=== PATIENT | male | born 1965 | race Caucasian/White ===

== ENCOUNTER 2019-08-01 00:29 | Day surgery (SDC) | payer OTHER, SELFPAY ==
[2019-07-22 14:32] VITALS: BMI 37.1
--- NOTE | 2019-08-01 07:35 | WPDHPUPDATE1 ---
History and Physical Update Update Date/Time: 08/01/19 07:35 History and Physical has been reviewed, including an updated exam of the patient. There are NO changes in the patient's condition. Risks, benefits, and alternatives have been discussed and questions answered. Patient agrees to proceed with procedure.
[2019-08-01] MEDS: CELECOXIB 200 MG CAPSULE PO (10:30)
--- NOTE | 2019-08-01 11:18 | WPDANESEPPF ---
Anes - Initial Pre Proc Eval Procedure: Operation Date: 08/01/19 10:30 Proposed Procedures p Left Knee Arthroscopy, Meniscectomy, Proceed As Indicated - Homero Sorenson MD Date/Time: 08/01/19 11:18 Surgeon: Homero Sorenson MD Pre Op Diagnosis: Left Medial Meniscus Tear Patient Data Age: 53 Gender: M Height: 5 ft 6 in Weight: 104.33 kg Allergies Allergy/AdvReac Type Severity Reaction Status Date / Time erythromycin base Allergy Mild UNKNOWN- Verified 07/22/19 14:32 STATES WAS CHILD Home Medications Medication Instructions Recorded Confirmed Type chlorhexidine gluconate 4 % 1 applic TOPICAL ONCE #237 ml 07/15/19 07/22/19 Rx topical liquid Patient hx anesthesia problems: none Family hx anesthesia problems: none PMFSH Past Medical History Medical History (Updated 07/10/19 @ 16:35 by RUSS Galan) Acute medial meniscus tear of left knee Degenerative joint disease of knee Left knee pain Surgical History Surgical History History of hernia repair Social History Social History Smoking status: Never smoker Alcohol intake: current Anes - Eval Final PreProcedure Day of Procedure 08/01/19 11:18 Patient weight: obese Heart: regular rate and rhythm Lungs: clear to auscultation Airway: Mallampati scale class II Neurological: alert and oriented Last oral intake: >/= 8 hours ASA classification: II Emergent: no Anesthetic plan: proceed Anesthesia type and monitoring: general LMA and standard monitoring Informed Consent: The patient's anesthetic plan and its attendant risks and benefits were discussed with the patient/family/POA. Questions were solicited and answers provided to the satisfaction of the patient/family/POA.
[2019-08-01] MEDS: LACTATED RINGERS 1,000 ML 30 ML IV CONT (11:24)
[2019-08-01] MEDS: ceFAZolin 2 GM/D5W 50 ML 2 GM/50 ML BAG IVPB (11:27)
[2019-08-01] MEDS: IBUPROFEN IV 800 MG/200 ML 800 MG/200 ML BAG 400 MG IVPB (11:45)
[2019-08-01 12:32] VITALS: BP 143/85; PULSE 95; RESP 16; TEMP 36.9; O2SAT 100
--- NOTE | 2019-08-01 12:35 | PM.OP ---
Procedure Note - Brief Procedure Note - Brief Date of procedure: 08/01/19 Pre-op diagnosis: Left Medial Meniscus Tear Procedure performed: L KNEE SCOPE WITH PARTIAL MEDIAL MENISCECTOMY AND ABRASION ARTHROPLASTY Anesthesia: GETA Surgeon: Homero Sorenson MD Estimated blood loss (mL): 5 Complications: No immediate complications Condition: stable Disposition: PACU
[2019-08-01 12:45] VITALS: BP 150/85; PULSE 96; RESP 16; O2SAT 98
[2019-08-01 12:58] VITALS: BP 150/85; PULSE 92; RESP 13; O2SAT 97
[2019-08-01 13:02] VITALS: BP 147/92; PULSE 88; RESP 18; O2SAT 98
[2019-08-01 13:20] VITALS: BP 147/93; PULSE 89; RESP 18; O2SAT 98
[2019-08-01 13:45] VITALS: BP 148/84; PULSE 92; RESP 18; O2SAT 98
--- NOTE | 2019-08-01 17:40 | OP_ITS ---
DATE OF PROCEDURE: 08/01/2019 PREOPERATIVE DIAGNOSES: 1. Left knee medial meniscus tear. 2. Left knee DJD. POSTOPERATIVE DIAGNOSES: 1. Left knee medial meniscus tear. 2. Left knee DJD. PROCEDURE: Left knee arthroscopy with partial medial meniscectomy and abrasion arthroplasty. ANESTHESIA: General. COMPLICATIONS: None. INDICATIONS: This is a 53-year-old male who came in with right knee pain. He had some medial-sided wearing and he did have medial-sided tenderness and a positive Monisha sign. After MRI was performed, it did show some mild arthritis, but also showed a large tear of the medial meniscus and it was thought that his pain was mostly coming from the meniscus, so he is indicated for left knee arthroscopy. DESCRIPTION OF PROCEDURE: The patient was taken to the operating room in stable condition and placed in supine position. General anesthesia was induced and the left lower extremity was prepped and draped sterilely from the toes to the thigh. Superomedial portals used for an outflow cannula. Inferolateral port was used for the camera. The camera was introduced. There was no significant chondromalacia to the patellofemoral joint. The medial compartment was entered. There was a large tear and a complex tear of the posterior horn of the medial meniscus. There was an area of complete cartilage loss on the medial plateau, but that area was approximately 1 cm wide by 3 cm long. A medial portal was established. A shaver and a biter were introduced at separate times and the medial meniscus tear was shaved down to a smooth base. Next, using a [place] pick, an abrasion arthroplasty was performed over the tibia and one small area on the femur were there appeared to be some denuded cartilage and a small area of exposed bone. There was good bleeding bone from all the abrasion arthroplasty sites. Next, the intercondylar notch was entered. There was no tear to the ACL. The lateral compartment was entered. There was no tear to the lateral meniscus. There was no significant chondromalacia to the lateral meniscus as well. Next, patellofemoral joint was entered once again and was found the patella was tracking normally without any tilt. The instruments were removed after thorough irrigation of knee joint. Wounds were approximated with 4-0 nylon suture. Sterile dressing was applied. The patient was extubated. D I MT: Annette
== END 2019-08-01 14:05 | disposition home or self-care (01) ==
PROVIDERS: PCP Family Medicine; Visit Provider Orthopaedic Surgery
PROC: (CPT 29870; principal; 2019-08-01 10:30)
DX: M23.322 Other meniscus derangements, posterior horn of medial meniscus, left knee (principal); M17.12 Unilateral primary osteoarthritis, left knee; E66.9 Obesity, unspecified; Z68.37 Body mass index [BMI] 37.0-37.9, adult
CPT/HCPCS: 29881; 29879; A9270; J0690; J1100; J1741; J2250; J2405; J2704; J3010; J7120

== ENCOUNTER 2022-06-23 12:40 | Outpatient (CLI) | payer OTHER, SELFPAY ==
[2022-06-23 13:09] LABS: Basophils Absolute Auto 0.1 K/mm3 (0.0-0.1); Basophils Percent Auto 0.9 % (0.2-1.2); Eosinophils Absolute Auto 0.4 K/mm3 (0-0.3); Eosinophils Percent Auto 3.9 % (0-4.4); Hematocrit 45.4 % (42.0-52.0); Hemoglobin 14.6 g/dL (14.0-18.0); Immature Granulocyte Absolute 0.04 K/mm3 (0.00-0.031); Immature Granulocyte Percent A 0.4 % (0-0.5); Lymphocytes Absolute Auto 2.61 K/mm3 (0.9-3.2); Lymphocytes Percent Auto 24.7 % (18.3-44.2); Mean Corpuscular HGB Conc 32.2 g/dl (32-36); Mean Corpuscular Hemoglobin 28.2 pg (26-34); Mean Corpuscular Volume 87.6 fl (80-100); Mean Platelet Volume 9.7 fl (7.4-10.4); Monocytes Absolute Auto 0.8 K/mm3 (0.1-0.6); Monocytes Percent Auto 7.5 % (2.6-8.5); Neutrophils Absolute Auto 6.6 K/mm3 (1.3-6.7); Neutrophils Percent Auto 62.6 % (45.5-73.1); Platelet Count Result 226 k/mm3 (150-375); Red Blood Count 5.18 M/mm3 (4.6-6.20); Red Cell Distribution Width 13.2 % (11.5-14.5); White Blood Count 10.6 K/mm3 (4.5-10.0)
--- NOTE | 2022-06-23 13:10 | ECG_ITS ---
Measurements Intervals [place] Rate: 85 P: 43 [place]: 178 QRS: 5 QRSD: 86 T: -1 QT: 371 QTc: 441 Interpretive Statements SINUS RHYTHM INCOMPLETE RIGHT BUNDLE BRANCH BLOCK LEFT VENTRICULAR HYPERTROPHY BORDERLINE T WAVE ABNORMALITY- INFERIOR LEADS BORDERLINE ECG NO PREVIOUS ECG AVAILABLE FOR COMPARISON Electronically Signed On 06-23-2022 13:24:38 POLICE SERVICE TECHNICIAN by Cristofer Smith D.O.
[2022-06-23 13:26] LABS: Anion Gap 5 mmol/L (8-16); Blood Urea Nitrogen 15 mg/dL (9-20); Calcium 8.8 mg/dL (8.4-10.2); Carbon Dioxide 27 mmol/L (22-30); Chloride 102 mmol/L (98-107); Estimated Glomerular Filt Rate > 60; Glucose 106 mg/dL (65-110); Potassium 4.6 mmol/L (3.4-5.0); Sodium 134 mmol/L (137-145)
[2022-06-23 13:40] LABS: Appearance Urine Clear (Clear); Bilirubin Urine Negative (Negative); Blood Urine Negative (Negative); Color Urine Yellow (Yellow); Glucose Urine UA Negative (Negative); Ketones Urine Negative (Negative); Leukocyte Esterase Ur Negative LEU/UL (Negative); Nitrate Urine Negative (Negative); Protein Urine Negative (Negative); Specific Grav Ur 1.025 (1.001-1.035); Urobilinogen Urine 0.2 mg/dL (<2.0); pH Urine 5.5 (5.0-9.0)
[2022-06-23 14:23] LABS: Add Urine Microscopic? NO
== END 2022-06-23 12:41 | disposition home or self-care (01) ==
PROVIDERS: Visit Provider Orthopaedic Surgery
DX: M17.12 Unilateral primary osteoarthritis, left knee (principal); Z01.818 Encounter for other preprocedural examination; I45.10 Unspecified right bundle-branch block
CPT/HCPCS: 36415; 80048; 81003; 85025; 93005

== ENCOUNTER 2022-08-09 07:49 | Outpatient (CLI) | payer OTHER, SELFPAY ==
[2022-08-09 09:09] LABS: White Blood Count 10.8 K/mm3 (4.5-10.0)
[2022-08-09 09:18] LABS: Partial Thromboplastin Time 24.1 SECONDS (22.3-36.8); Prothrombin Time 12.3 Seconds (11.1-14.7)
[2022-08-09 09:24] LABS: Urine Cotinine NEGATIVE
== END 2022-08-09 07:50 | disposition home or self-care (01) ==
PROVIDERS: Visit Provider Orthopaedic Surgery
DX: M17.12 Unilateral primary osteoarthritis, left knee (principal); Z01.818 Encounter for other preprocedural examination
CPT/HCPCS: 80307; 82040; 83036; 85048; 85610; 85730; 87081

== ENCOUNTER 2022-08-23 00:20 | Day surgery (SDC) | payer OTHER, SELFPAY ==
--- NOTE | 2022-08-09 07:54 | PC.NURSE ---
PRE-OP INSTRUCTIONS, PLEASE READ CAREFULLY Report to the Outpatient Waiting Room, entrance under the green pavilion located off [facility], at time _1000_ on date _08/23/22_. Planned Procedure Time: _1200_. PACK A SMALL OVERNIGHT BAG AND LEAVE IN THE CAR ALONG WITH YOUR WALKER Time changes happen often and if your time is changed the preop area will call you the afternoon before. - You and your visitor will be asked to self-screen and do not enter if you have any COVID symptoms. - Only one visitor is requested with a max of two and NO children visitors are allowed at this time. - The patient visitor may be requested to leave or wait in car when not with patient due to distancing restrictions. - A mask is optional within the hospital at this time. -VISITING HOURS 8AM-8PM Patients may have clear liquids (water, carbonated beverages, clear teas, apple juice) until 3 hours prior to surgery (0900 AM) with a maximum of 20 ounces. - No food from midnight until time of surgery Take the following medications with a SIP of water the morning of surgery: _NONE_ DO NOT STOP ANY OF YOUR OTHER PRESCRIPTION MEDICATIONS PRIOR TO SURGERY ?EXCEPT THE FOLLOWING Medications to discontinue _ALEVE PER DR. ROB'S INSTRUCTIONS_ Date to take last dose Please no deodorant, or body powder the day of surgery. No jewelry (including any body piercings) or valuables the day of surgery, leave them at home. Please take a shower or bath the night before, or the morning of, surgery with an antibacterial soap. Wear comfortable, loose fitting clothing. - Jewelry must be removed prior to entering the operating room. Rings and piercings that are not removed may be cut off. - The hospital will not accept responsibility for valuables. - Please leave all valuables, including medications, at home the day of surgery. If you are going home after surgery, a licensed package delivery driver must drive you home. - NO public transportation without another adult if you receive anesthesia. - We recommend that an adult stay with you for 24 hours following discharge. - We also recommend that you do not drive, make important decision, drink alcoholic beverages, or take any drugs that were not prescribed by your health care provider for at least 24 hours after your discharge time. Follow any additional instructions given to you from your surgeon. TOTAL JOINT CLASS 08/09/22 @ 10AM, [facility] ENTR[facility]2 - LOWER LEVEL If you or anyone in your household have experienced Covid symptoms in the past week, please notify your surgeon or the nurse liaison at the phone number below for possible testing. Instructions given to _PATIENT_and asked if any additional questions and then verbalized understanding. Patient advised to call surgeon office or pre surgery nurse liaison [phone] if any additional questions.
[2022-08-09 08:15] VITALS: BP 152/82; PULSE 90; RESP 20; TEMP 37.1; O2SAT 98; BMI 39.7
[2022-08-23] VITALS (19 sets, daily range): BP systolic 111–156; BP diastolic 73–109; PULSE 85–108; RESP 12–18; TEMP 36.3–37.1; O2SAT 94–100; BMI 39.4
--- NOTE | ~2022-08-23 | XR_ITS ---
EXAMINATION: [id number] DATE: 08/23/2022 12:49 INDICATION: Postoperative evaluation following left total knee arthroplasty. TECHNIQUE: Anteroposterior and lateral views of the left knee were obtained. COMPARISON: None. FINDINGS: Left total knee arthroplasty without patellar resurfacing appears well seated and in near anatomic al ignment. No fractures identified. Expected postoperative subcutaneous and intra-articular gas. Midli ne skin dilia anterior to the knee. Small enthesophyte at the anterior tibial tuberosity. IMPRESSION: 1. Left total knee arthroplasty without patellar resurfacing, negative for postoperative purposes. Reviewed, dictated and finalized at location B. IMPRESSION: 1. Left total knee arthroplasty without patellar resurfacing, negative for post operative purposes.
--- NOTE | 2022-08-23 07:15 | WPDHPUPDATE1 ---
History and Physical Update Update Date/Time: 08/23/22 07:15 History and Physical has been reviewed, including an updated exam of the patient. There are NO changes in the patient's condition. Risks, benefits, and alternatives have been discussed and questions answered. Patient agrees to proceed with procedure.
[2022-08-23] MEDS: ACETAMINOPHEN 500 MG TABLET 1000 MG PO (09:16)
[2022-08-23] MEDS: LACTATED RINGERS 1,000 ML 30 ML IV CONT ×2 (09:16→12:38)
[2022-08-23] MEDS: TRANEXAMIC ACID 1,000MG/ISO100 1,000 MG/100 ML BAG 200 MG IVPB (09:17)
--- NOTE | 2022-08-23 09:27 | P.PNAN_ITS ---
Anes - Initial Pre Proc Eval Procedure: Operation Date: 08/23/22 10:30 Proposed Procedures p Left Total Knee Arthroplasty - Homero Sorenson MD Date/Time: 08/23/22 09:27 Surgeon: Homero Sorenson MD Pre Op Diagnosis: left knee djd Patient Data Age: 56 Gender: M Height: 1.65 m Weight: 107.4 kg Last Vital Signs Temp 36.6 C 08/23/22 08:50 Pulse 85 08/23/22 08:50 Resp 16 08/23/22 08:50 BP 134/82 08/23/22 08:50 Pulse Ox 98 08/23/22 08:50 O2 Del Method Room Air 08/23/22 08:50 Allergies Allergy/AdvReac Type Severity Reaction Status Date / Time erythromycin base Allergy Mild UNKNOWN- Verified 08/10/22 13:31 STATES WAS CHILD Home Medications Medication Instructions Recorded Confirmed Type lisinopril 20 mg tablet 20 mg HS 08/09/22 08/23/22 History naproxen sodium 220 mg tablet 440 mg PO BID PRN Pain 08/09/22 08/23/22 History (Aleve) chlorhexidine gluconate 4 % 1 applic topical ONCE #237 mL 08/14/22 08/23/22 Rx topical liquid (Hibiclens) Patient hx anesthesia problems: none Family hx anesthesia problems: none Results Review: All pre-operative results and documents have been reviewed as part of the pre- operative evaluation. [facility] Past Medical History Medical History Acute medial meniscus tear of left knee Degenerative joint disease of knee HTN (hypertension) Left knee DJD Left knee pain Surgical History Surgical History (Updated 08/23/22 @ 09:27 by Cameron Lake MD) H/O arthroscopic knee surgery History of hernia repair Family History Family History Unknown Diabetes mellitus Hypertension Social History Social History Smoking status: Never smoker Second hand tobacco smoke exposure: No Additional smoking assessment comments: PT DENIES ALL FORMS OF TOBACCO USE Alcohol intake: current Alcohol use details: 8-10 BEERS/WEEK Substance use: never Substance use type: does not use Living arrangements: with family Spiritual care concerns: No Anes - Eval Final PreProcedure Day of Procedure 08/23/22 09:27 Patient weight: morbidly obese Heart: regular rate and rhythm Lungs: clear to auscultation Airway: Mallampati scale class II Neurological: alert and oriented Last oral intake: >/= 8 hours ASA classification: III Emergent: no Anesthetic plan: proceed Anesthesia type and monitoring: general LMA and standard monitoring Results Review: All pre-operative results and documents have been reviewed as part of the pre- operative evaluation. Informed Consent: The patient's anesthetic plan and its attendant risks and benefits were discussed with the patient/family/POA. Questions were solicited and answers provided to the satisfaction of the patient/family/POA.
--- NOTE | 2022-08-23 09:59 | WPDANESPNB ---
Anes - Peripheral Nerve Block Date/Time: 08/23/22 09:59 I have discussed with the patient/family/POA the placement of a peripheral nerve block for post-operative pain management, including associated risks, benefits, complications, and side effects. Alternative methods of post-operative analgesia were detailed. Questions were solicited and answers provided to the satisfaction of the patient/family/POA. Time-Out: A pre-procedural Time-Out was completed immediately before starting the procedure and confirmed: Patient Identification, Site, Procedure, Patient Position and the Availability of Requisite Equipment. Clinical Indications: Acute post-operative pain management requested by the operative surgeon. Nerve Block Insertion Note Anes-nerve block: femoral left Patient position: supine Skin prep: chlorhexidine Needle: 22 gauge, stimulating, insulated echogenic needle. Needle length: 50 mm Technique: nerve stimulation lost at (mA) (0.45) Injectate: bupivacaine 0.5% with epi 5 mcg/ml (20cc no epi) Complications: none Procedure start time:: 954 Procedure end time:: 999
[2022-08-23] MEDS: ceFAZolin 2 GM/D5W 50 ML 2 GM/50 ML BAG IVPB ×2 (10:21→17:47)
[2022-08-23] MEDS: TRANEXAMIC ACID 1,000 MG/10 ML AMPUL 1000 MG IV PUSH (11:46)
--- NOTE | 2022-08-23 12:37 | W.PM.PROC2 ---
Procedure Note - Detailed Date of Procedure 08/23/22 Pre-op Diagnosis left knee djd Post-op Diagnosis Same Procedure Performed LEFT TKA Surgeon Homero Sorenson MD Anesthesia General Description of Procedure THE LEFT KNEE WAS PREPPED AND DRAPED IN THE STERILE FASHION.?A MIDLINE SKIN INCISION WAS MADE.? A MEDIAL PARAPATELLAR ARTHROTOMY WAS MADE.? THE PATELLA WAS EVERTED.? THERE WAS TRICOMPARTMENT DJD. AN INTRAMEDULLARY JAVI WAS PLACED IN THE FEMUR.? A DISTAL FEMORAL CUT WAS MADE IN 5 DEGREES OF VALGUS REMOVING APPROXIMATELY 11 MM OF BONE FROM THE DISTAL FEMUR. THE FEMUR WAS SIZED TO 62.5.? A 62.5 FEMORAL CUTTING BLOCK WAS PLACED IN 3 DEGREES OF EXTERNAL ROTATION AND IN ALIGNMENT WITH CRISTIAN'S LINE AND THE TRANSEPICONDYLAR AXIS. ANTERIOR POSTERIOR AND CHAMFER CUTS WERE MADE.? THE CUTS WERE EXCELLENT.? NEXT AN INTRAMEDULLARY CUTTING GUIDE WAS PLACED IN THE TIBIA.? A TRANS TIBIAL CUT WAS MADE ALONG THE LONG AXIS OF THE TIBIA.? APPROXIMATELY 10 MM OF BONE WAS REMOVED FROM THE HIGH SIDE OF THE TIBIA. THE TIBIA WAS THEN PLANED TO A SMOOTH SURFACE.? POSTERIOR FEMORAL OSTEOPHYTES WERE REMOVED FROM THE FEMORAL CONDYLES.? A 71 TIBIAL TRIAL WAS PLACED IN ALIGNMENT WITH THE 1/3 MEDIAL ASPECT OF THE TIBIAL TUBERCLE.? THEN A 62.5 FEMORAL TRIAL COMPONENT WAS PLACED.? BOTH HAD EXCELLENT FITS.? EVENTUALLY A 10 CR POLYETHYLENE TRIAL? COMPONENT WAS PLACED.? THE KNEE WAS TAKEN THROUGH A RANGE OF MOTION.? THE KNEE CAME OUT TO FULL EXTENSION.? THERE WAS NO ABNORMAL TILT TO THE PATELLA.? THERE WAS GOOD A/P AND VARUS/VALGUS STABILITY.? THERE WAS NO EXCESSIVE ROLL BACK WITH FLEXION.? THE TRIAL COMPONENTS WERE REMOVED. THEN A 62.5 FEMORAL COMPONENT AND 71 TIBIAL COMPONENT WITH A 10 CR POLYETHYLENE COMPONENT WERE CEMENTED INTO PLACE.? ONCE THE CEMENT WAS HARD THE KNEE WAS TAKEN THROUGH A ROM AGAIN AND FOUND TO BE STABLE WITH NO PATELLA TILT NO EXCESSIVE ROLL BACK WITH FLEXION AND GOOD STABILITY WITH COMPLETE AND FULL EXTENSION.? THE KNEE WAS IRRIGATED WITH STERILE BETADINE AND WATER FOR ABOUT 3 MINUTES.? THE BLEEDERS WERE CAUTERIZED.? THE ARTHROTOMY WAS REPAIRED WITH NUMBER 1 VICRYL.? THE SUB CUTANEOUS LAYER WITH 2-0 VICRYL AND THE SKIN WITH ADAM.? THE WOUND WAS WASHED AND A STERILE DRESSING WAS APPLIED.? PATIENT WAS EXTUBATED. Estimated Blood Loss 100 Drains No Complications No immediate complications Disposition PACU
[2022-08-23] MEDS: fentaNYL CITRATE INJ (*CRX) 100 MCG/2 ML VIAL 25 MCG IV PUSH ×8 (12:45→13:19)
--- NOTE | 2022-08-23 13:24 | SUR.PHASEI ---
Call to Dr. Lake for pain medication. Patient rating pain a 10 on numeric scale to left knee after 200MCG of fentanyl being administered. Per Dr. Lake place orders for 0.5MG dilaudid IVP max dosing 2MG.
[2022-08-23] MEDS: HYDROmorphone HCL INJ (*CRX) 1 MG/ML SYR 0.5 MG IV PUSH ×3 (13:29→13:52)
[2022-08-23] MEDS: LABETALOL HCL INJ 100 MG/20 ML VIAL 10 MG IV PUSH ×2 (14:02→14:16)
--- NOTE | 2022-08-23 15:10 | PC.NURSE ---
This patient, Alfredo Fontaine, was admitted to [address] [facility] Surg Room 322-01. Patient/family oriented to hospital policies and general routines including ID bracelet, bed and alarms, visiting hours, pain management, procedures, bathroom and other care routines, personal items, smoking policy, room service/diet, and visiting hours. Information on how to activate the Rapid Response Team has been discussed. Patient/Family are encouraged to report perceived risks to care and to ask questions if they do not understand what they are told or what they should do.
[2022-08-23] MEDS: oxyCODONE/ACETAMINOPHEN (*CRX) 5-325 MG TABLET 1 TABLET PO ×2 (15:59→21:04)
[2022-08-23] MEDS: KETOROLAC 15 MG/ML VIAL (*BKC) IV PUSH (18:47)
[2022-08-23] MEDS: lisinopriL 20 MG TABLET BY MOUTH (21:02)
[2022-08-23] MEDS: ASPIRIN 325 MG ENTERIC TABLET PO (21:02)
[2022-08-23] MEDS: FAMOTIDINE 20 MG TABLET PO (21:02)
[2022-08-24] VITALS: BP 116/70; PULSE 87; RESP 18; TEMP 36.2; O2SAT 98
[2022-08-24] MEDS: KETOROLAC 15 MG/ML VIAL (*BKC) IV PUSH ×3 (00:30→11:38)
[2022-08-24] MEDS: ceFAZolin 2 GM/D5W 50 ML 2 GM/50 ML BAG IVPB ×2 (01:43→11:39)
[2022-08-24 04:00] VITALS: BP 97/59; PULSE 87; RESP 18; TEMP 36.2; O2SAT 99
[2022-08-24 07:25] LABS: Basophils Percent Auto 0.3 % (0.2-1.2); Eosinophils Percent Auto 0.2 % (0-4.4); Hematocrit 38.4 % (42.0-52.0); Hemoglobin 12.1 g/dL (14.0-18.0); Immature Granulocyte Absolute 0.09 K/mm3 (0.00-0.031); Immature Granulocyte Percent A 0.6 % (0-0.5); Lymphocytes Absolute Auto 2.51 K/mm3 (0.9-3.2); Lymphocytes Percent Auto 17.2 % (18.3-44.2); Mean Corpuscular HGB Conc 31.5 g/dl (32-36); Mean Corpuscular Hemoglobin 28.2 pg (26-34); Mean Corpuscular Volume 89.5 fl (80-100); Monocytes Absolute Auto 1.3 K/mm3 (0.1-0.6); Monocytes Percent Auto 8.7 % (2.6-8.5); Neutrophils Absolute Auto 10.6 K/mm3 (1.3-6.7); Platelet Count Result 260 k/mm3 (150-375); Red Blood Count 4.29 M/mm3 (4.6-6.20); Red Cell Distribution Width 13.6 % (11.5-14.5); White Blood Count 14.6 K/mm3 (4.5-10.0)
[2022-08-24 07:47] LABS: Anion Gap 8 mmol/L (8-16); Blood Urea Nitrogen 18 mg/dL (9-20); Calcium 8.5 mg/dL (8.4-10.2); Carbon Dioxide 23 mmol/L (22-30); Chloride 103 mmol/L (98-107); Estimated CRCL calculation 91 ml/min; Estimated Glomerular Filt Rate > 60; Glucose 134 mg/dL (65-110); Sodium 134 mmol/L (137-145)
[2022-08-24 07:49] VITALS: BP 108/75; PULSE 91; RESP 16; TEMP 36.5; O2SAT 97
[2022-08-24 08:00] VITALS: PULSE 91; RESP 16; O2SAT 97
[2022-08-24] MEDS: ASPIRIN 325 MG ENTERIC TABLET PO (08:04)
[2022-08-24] MEDS: SENNA/DOCUSATE SODIUM TABLET 2 TAB PO (08:04)
[2022-08-24] MEDS: polyethylene glycoL 3350 17 GM POWD.PACK PO (08:05)
[2022-08-24] MEDS: oxyCODONE/ACETAMINOPHEN (*CRX) 5-325 MG TABLET 1 TABLET PO ×3 (08:05→15:54)
[2022-08-24] MEDS: FAMOTIDINE 20 MG TABLET PO (08:05)
--- NOTE | 2022-08-24 11:12 | WPDANESPN ---
Anes - Prog Note Post-Op Date/Time: 08/24/22 11:12 Cardiovascular status: normal Respiratory status: normal Airway patency: baseline Mental status: baseline Post-Op hydration status: normal Vital Signs: Last Vital Signs Temp 97.7 F 08/24/22 07:49 Pulse 91 08/24/22 08:00 Resp 16 08/24/22 08:00 BP 108/75 08/24/22 07:49 Pulse Ox 97 08/24/22 08:00 O2 Del Method Room Air 08/24/22 10:09 O2 Flow Rate 8 08/23/22 12:50 Pain Score (VAS): 4 I/O: Intake & Output 08/23/22 08/24/22 08/24/22 23:59 07:59 15:59 Intake Total 310 360 Balance 310 360 Laboratory Tests 08/24/22 06:22 08/24/22 06:22 08/24/22 08/24/22 06:22 06:22 WBC 14.6 H RBC 4.29 L Hgb 12.1 L Hct 38.4 L MCV 89.5 MCH 28.2 MCHC 31.5 L RDW 13.6 Plt Count 260 MPV 10.0 Immature Gran % (Auto) 0.6 H Neut % (Auto) 73.0 Lymph % (Auto) 17.2 L [place] % (Auto) 8.7 H Eos % (Auto) 0.2 Baso % (Auto) 0.3 Lymph # (Auto) 2.51 [place] # (Auto) 1.3 H Eos # (Auto) 0.0 Baso # (Auto) 0.0 Abs Immat Gran (auto) 0.09 H Absolute Neuts (auto) 10.6 H Absolute Nucleated RBC 0.0 Nucleated RBC % 0.0 Sodium 134 L Potassium 4.0 Chloride 103 Carbon Dioxide 23 Anion Gap 8 BUN 18 Creatinine 0.90 Estim Creat Clear Calc 91 Estimated GFR > 60 Glucose 134 H Calcium 8.5 Post-procedural complaints: none Patient Feedback: Patient satisfied with anesthetic care. satisfied with PNB.
--- NOTE | 2022-08-24 11:13 | PCCCNOTE ---
On 08/24/22, the student, [Jahaira Hood], provided care and completed [facility] documentation on this patient. I have reviewed the student's documentation and agree with the findings.
[2022-08-24 12:00] VITALS: BP 123/70; PULSE 90; RESP 14; TEMP 36.6; O2SAT 99
--- NOTE | 2022-08-24 15:06 | PM.PNORT ---
Progress Note: A&P Assessment and Plan (1) Left knee DJD: Code(s): M17.12 - Unilateral primary osteoarthritis, left knee Status: Acute Assessment and Plan: POD 1 DOING WELL. OK TO DC HOME F/U IN 3 WEEKS. Subjective Subjective Date/Time Seen: 08/24/22 15:06POD 1 DOING WELL. NO CALF PAIN Exam Extrem: Other: VSS AFEBRILE DRESSING DRY NV INTACT CALF SOFT THIGH SOFT NEG HOMANS SIGN Objective Data Vital Signs Vital Signs: Vital Signs - 24 hr 08/23/22 15:15 08/23/22 15:45 08/23/22 16:34 Temperature 36.7 C 36.6 C 36.3 C L Pulse Rate 93 91 89 Respiratory Rate 12 14 12 Blood Pressure 150/94 H 125/81 136/83 Pulse Oximetry 94 95 95 Oxygen Delivery 08/23/22 20:00 08/23/22 20:00 08/23/22 22:00 Temperature 36.4 C Pulse Rate 89 Respiratory Rate 18 Blood Pressure 111/73 Pulse Oximetry 96 98 Oxygen Delivery Room Air Room Air 08/24/22 00:00 08/24/22 04:00 08/24/22 07:40 Temperature 36.2 C L 36.2 C L Pulse Rate 87 87 Respiratory Rate 18 18 Blood Pressure 116/70 97/59 L Pulse Oximetry 98 99 Oxygen Delivery Room Air 08/24/22 07:49 08/24/22 08:00 08/24/22 08:19 Temperature 36.5 C Pulse Rate 91 91 Respiratory Rate 16 16 Blood Pressure 108/75 Pulse Oximetry 97 97 Oxygen Delivery Room Air Room Air 08/24/22 10:09 08/24/22 12:00 Temperature 36.6 C Pulse Rate 90 Respiratory Rate 14 Blood Pressure 123/70 Pulse Oximetry 99 Oxygen Delivery Room Air Intake/Output Intake/Output: Intake & Output 08/21/22 08/22/22 08/23/22 08/24/22 23:59 23:59 23:59 23:59 Intake Total 660 700 Balance 660 700 Meds/Results Medications: Active Medications Generic Name Dose Route Start Last Admin Trade Name Freq PRN Reason Stop Dose Admin Acetaminophen 1,000 mg 08/23/22 14:49 Acetaminophen 500 Mg Tablet PO Q6H PRN Pain Rated 1-3 Aspirin 325 mg 08/23/22 21:00 08/24/22 08:04 Aspirin 325 Mg Enteric Tablet PO 325 mg Q12HR ADOLFO Administration Diazepam 5 mg 08/23/22 14:49 Diazepam (*Crx) 5 Mg Tablet PO Q8H PRN Spasms Diphenhydramine HCl 25 mg 08/23/22 14:49 Diphenhydramine Hcl Inj 50 Mg/Ml Vial IV PUSH Q6H PRN Itching Famotidine 20 mg 08/23/22 21:00 08/24/22 08:05 Famotidine 20 Mg Tablet PO 20 mg Q12HR ADOLFO Administration Ketorolac Tromethamine 15 mg 08/23/22 18:00 08/24/22 11:38 Ketorolac 15 Mg/Ml Vial (*Bkc) IV PUSH 08/24/22 18:01 15 mg Q6HR ADOLFO Administration Lisinopril 20 mg 08/23/22 21:00 08/23/22 21:02 Lisinopril 20 Mg Tablet BY MOUTH 20 mg HS ADOLFO Administration Naloxone HCl 0.1 mg 08/23/22 14:49 Naloxone Hcl 0.4 Mg/Ml Vial IV PUSH Q2M PRN Opiate Reversal Ondansetron HCl 4 mg 08/23/22 14:49 Ondansetron Inj 4 Mg/2 Ml Vial IV PUSH Q4H PRN Nausea And Vomiting Oxycodone/Acetaminophen 1 tablet 08/23/22 14:49 08/24/22 12:14 Oxycodone/Acetaminophen (*Crx) 5-325 Mg Tablet PO 1 tablet Q4H PRN Administration Pain Rated 4-6 Oxycodone/Acetaminophen 2 tablet 08/23/22 14:49 Oxycodone/Acetaminophen (*Crx) 5-325 Mg Tablet PO Q6H PRN Pain Rated 7-10 Polyethylene Glycol 17 gm 08/24/22 09:00 08/24/22 08:05 Polyethylene Glycol 3350 17 Gm Powd.Pack PO 17 gm QAM ADOLFO Administration Senna/Docusate Sodium 2 tab 08/23/22 17:00 08/24/22 08:04 Senna/Docusate Sodium Tablet PO 2 tab BID ADOLFO Administration Radiology Results: ITS Impressions Knee X-Ray 08/23/22 12:50 IMPRESSION: 1. Left total knee arthroplasty without patellar resurfacing, negative for postoperative purposes. Labs Labs: Laboratory Results - last 24 hr 08/24/22 08/24/22 06:22 06:22 WBC 14.6 H RBC 4.29 L Hgb 12.1 L Hct 38.4 L MCV 89.5 MCH 28.2 MCHC 31.5 L RDW 13.6 Plt Count 260 MPV 10.0 Immature Gran % (Auto) 0.6 H Neut % (Auto) 73.0 Lymph % (Auto) 17.2 L [place] % (Auto)
--- NOTE | 2022-08-24 15:09 | P.DS_ITS ---
DS: Admitting Diagnosis Discharge Date 08/24/22 Admitting Diagnosis LEFT KNEE DJD DS: Discharge Diagnosis Discharge Diagnosis (1) Left knee DJD: Code(s): M17.12 - Unilateral primary osteoarthritis, left knee Status: Acute DS: Summary Hospital Course Reason for hospitalization: LEFT TKA Hospital Course: PATIENT WAS ADMITTED S/P TOTAL KNEE ARTHROPLASTY FOR POSTOPERATIVE MEDICAL MANAGEMENT, PAIN CONTROL AND MOBILIZATION WITH PHYSICAL AND OCCUPATIONAL THERAPY. THE PATIENT PROGRESSED WELL WITH PT/OT. LABS AND VITALS REMAINED STABLE AND PAIN WELL CONTROLLED. THE PATIENT HAS BEEN CLEARED TO BE DISCHARGED HOME. FOLLOW UP APPOINTMENT SCHEDULED. DISCHARGE INSTRUCTIONS DISCUSSED AT LENGTH WITH THE PATIENT. MEDICATIONS REVIEWED. Status at Discharge Cognitive/behavioral status at discharge: STABLE Functional status at discharge: uses cane/walker Time Spent with Patient Time attestation: Total time spent providing and/or coordinating discharge services: DS: Data Data Completed and Pending Labs on day of discharge: Labs from last 24 hours 08/24/22 08/24/22 06:22 06:22 WBC 14.6 H RBC 4.29 L Hgb 12.1 L Hct 38.4 L MCV 89.5 MCH 28.2 MCHC 31.5 L RDW 13.6 Plt Count 260 MPV 10.0 Immature Gran % (Auto) 0.6 H Neut % (Auto) 73.0 Lymph % (Auto) 17.2 L [place] % (Auto) 8.7 H Eos % (Auto) 0.2 Baso % (Auto) 0.3 Lymph # (Auto) 2.51 [place] # (Auto) 1.3 H Eos # (Auto) 0.0 Baso # (Auto) 0.0 Abs Immat Gran (auto) 0.09 H Absolute Neuts (auto) 10.6 H Absolute Nucleated RBC 0.0 Nucleated RBC % 0.0 Sodium 134 L Potassium 4.0 Chloride 103 Carbon Dioxide 23 Anion Gap 8 BUN 18 Creatinine 0.90 Estim Creat Clear Calc 91 Estimated GFR > 60 Glucose 134 H Calcium 8.5 Procedures/Treatments: L TKA Discharge Plan Discharge Patient Disposition: Home Health Service Discharge Instructions: Per Care Coordination [facility] is arranged for RN, PT/OT evaluations and treatment. [facility] anticipates your first visit to be tomorrow 08/25/2022. [facility] phone number is [phone]. Patient Instructions: Antibiotic Form Stand Alone Forms: General Discharge Information Follow-up/Referrals: Homero Sorenson MD [Physician] - 3 Weeks Discharge Medications: New oxycodone-acetaminophen [Percocet] 7.5-325 mg tablet 1 tablet PO Q6H PRN (Reason: pain) Qty: 30 0RF Continued lisinopril 20 mg tablet 20 mg HS naproxen sodium [Aleve] 220 mg Tablet 440 mg PO BID PRN (Reason: Pain) Discontinued chlorhexidine gluconate [Hibiclens] 4 % liquid 1 applic topical ONCE Qty: 237 0RF Rx Instructions: Cleanse operative extremity, in shower, every day for 3 days prior to surgica l procedure.
== END 2022-08-24 15:56 | disposition home health service (06) ==
LOC: ANHSURGERY 08:22 → ANH3MEDSUR 15:00
PROVIDERS: Visit Provider Orthopaedic Surgery
PROC: (CPT 27447; principal; 2022-08-23 10:30)
DX: M17.12 Unilateral primary osteoarthritis, left knee (principal); G89.18 Other acute postprocedural pain; I10 Essential (primary) hypertension; E66.01 Morbid (severe) obesity due to excess calories; Z68.39 Body mass index [BMI] 39.0-39.9, adult
CPT/HCPCS: 27447; 64447; 36415; 73560; 80048; 80307; 82040; 83036; 85025; 85048; 85610; 85730; 86850; 86900; 86901; 87081; 97110; 97116; 97161; 97165; A9270; C1713; C1776; J0171; J0690; J1100; J1170; J1885; J2250; J2270; J2405; J2704; J2795; J3010; J7120